=== PATIENT | female | born 1940 | race Caucasian/White ===

== ENCOUNTER 2022-06-02 14:40 | Emergency (ER) | payer MEDICARE, OTHER, SELFPAY ==
[2022-06-02 15:04] VITALS: BP 129/49; PULSE 71; RESP 18; TEMP 36.3; O2SAT 94; BMI 18.4
--- NOTE | 2022-06-02 15:52 | ED_ITS ---
HPI - General Adult General Date Seen: 06/02/22 Chief complaint: Dizziness/Vertigo Stated complaint: Lightheaded Time Seen by Provider: 06/02/22 15:10 Source: patient Mode of arrival: ambulatory Limitations: no limitations Related Data Home Medications Medication Instructions Recorded Confirmed chlorthalidone 50 mg tablet mg 06/02/22 lisinopril 10 mg tablet mg 06/02/22 Allergies Allergy/AdvReac Type Severity Reaction Status Date / Time No Known Drug Allergies Allergy Verified 06/02/22 14:59 Review of Systems Status of ROS: Reports: 10 or more systems reviewed and unremarkable except as noted in History and below [facility] Medical History (Updated 06/02/22 @ 16:29 by Ochoa Coronado MD) Hypertension Surgical History (Updated 06/02/22 @ 15:11 by Malorie Garcia RN) History of cholecystectomy Social History Smoking Status: Former smoker What tobacco products do you use: cigarettes Do you use any of these nicotine containing products: None Second hand tobacco smoke exposure: Yes How often do you have a drink containing alcohol: 2-3 times a week How many standard drinks containing alcohol do you have on a typical day: 1 or 2 How often do you have six or more drinks on one occasion: Never AUDIT-C Alcohol total score: 3 Non-prescribed substance use: denies use Exam Const: Vital Signs, click to edit/add: Vital Signs - 24 hr 06/02/22 15:04 06/02/22 16:00 Temperature 97.3 F L Pulse Rate [Right Pulse Oximeter] 71 72 Respiratory Rate 18 14 Blood Pressure [Ri ght Upper Arm] 129/49 L 113/61 Pulse Oximetry 94 98 Documenting provider has reviewed patient's vital signs: yes Common normals: no apparent distress General appearance: cooperative and frail appearing Nutritional appearance: cachectic Orientation/consciousness: Yes awake, Yes oriented to person, Yes oriented to place and Yes oriented to time HENMT: Common normals: normocephalic and TM's normal bilaterally Head and scalp: normal to inspection and normocephalic General ear: hearing grossly impaired Tympanic membrane: TM's normal bilaterally Mouth: oral and palatal mucosa normal Throat: posterior oropharynx normal Neck & C-Spine: Common normals: thyroid normal Thyroid: thyroid normal Chest: Common normals: inspection of chest normal Resp: Common normals: normal respiratory effort and clear to auscultation bilaterally Auscultation: clear to auscultation bilaterally GI: Common normals: Normal to inspection, nondistended, normoactive bowel sounds present Extremity: Common normals: normal capillary refill and no pedal edema Neuro: Sensorium/orientation: awake, oriented to person, oriented to place and oriented to time Speech: speech normal Gait (neuro): normal gait Course Course Hospital Course: Patient was seen and examined labs are ordered. Her initial blood pressure is 100/40. She is on two antihypertensives. Reevaluation(s) Reevaluation #1: She feels a bit better after her IV fluids. We discussed her abnormal test results which were sodium of 128, BUN of 61, creatinine 2.1. I will have her hold both blood pressure medications until she follows up in the clinic. We also discussed a plan for her chronic diarrhea. Vital Signs Vital signs: Initial Vital Signs Temperature 97.3 F L 06/02/22 15:04 Temperature Source Temporal Artery Scan 06/02/22 15:04 Pulse Rate 71 06/02/22 15:04 Respiratory Rate 18 06/02/22 15:04 Blood Pressure 129/49 L 06/02/22 15:04 Blood Pressure Mean 75 06/02/22 15:04 Blood Pressure Position Sitting 06/02/22 15:04 Pulse Oximetry 94 06/02/22 15:04 Oxygen Delivery Method 06/02/22 15:04 Vital Signs Temperature 97.3 F L 06/02/22 15:04 Pulse Rate 71 06/02/22 15:04 Respiratory Rate 18 06/02/22 15:04 Blood Pressure 129/49 L 06/02/22 15:04 Pulse Oximetry 94 06/02/22 15:04 Temperature 97.3 F L 06/02/22 15:04 Pulse Rate 72 06/02/22 16:00 Respiratory Rate 14 06/02/22 16:00 Blood Pressure 113/61 06/02/22 16:00 Pulse Oximetry 98 06/02/22 16:00 Medical Decision Making Lab Data Labs: Lab Results 06/02/22 06/02/22 Range/Units 15:35 15:35 WBC 7.78 (4.50-11.00) K/uL RBC 4.10 (4.00-5.20) m/uL Hgb 12.2 (12.0-16.0) gm/dL Hct 37.1 (33.0-51.0) % MCV 91 (80-100) fL MCH 30 (26-34) pg MCHC 33 (32-36) gm/dL RDW Coeff of Rhoda 11.8 (11.5-15.5) % Plt Count 328 (140-440) K/uL Neut % (Auto) 78.4 H (42.0-72.0) % Lymph % (Auto) 11.6 L (20-44) % [place] % (Auto) 8.4 (0.0-11.0) % Eos % (Auto) 1.3 (0.0-7.0) % Baso % (Auto) 0.3 (0.0-3.0) % Neut # (Auto) 6.10 (1.7-7.0) K/uL Lymph # (Auto) 0.90 (0.90-2.90) K/uL [place] # (Auto) 0.70 (0.00-0.90) K/UL Eos # (Auto) 0.10 (0.00-0.50) K/uL Baso # (Auto) 0.02 (0.00-0.30) K/uL Abs Immat Gran (auto) 0.00 (0.00-0.30) K/uL Sodium 128 L (135-149) mmol/L Potassium 5.0 (3.6-5.1) mmol/L Chloride 100 (96-114) mmol/L Carbon Dioxide 21 (20-32) mmol/L BUN 63 H (7-30) mg/dL Creatinine 2.1 H (0.5-1.5) mg/dL Estimated Creat Clear 15.12 Glucose 109 (60-115) mg/dL Calcium 9.0 (8.4-10.6) mg/dL Total Bilirubin 0.4 (0.1-1.5) mg/dL Direct Bilirubin 0.3 (0.0-0.5) mg/dL AST 14 (12-35) U/L ALT 20 (4-35) U/L Alkaline Phosphatase 85 (40-150) U/L Total Protein 6.0 (6.0-8.3) g/dL Albumin 3.7 (3.3-5.0) g/dL Discharge Plan Discharge Clinical Impression: Hypotension, iatrogenic, Hyponatremia, Acute renal insufficiency Patient Disposition: Home, Self-Care Condition: Improved Additional Instructions: Stop taking your chlorthalidone and lisinopril. Push fluids. Monitor your blood pressure at home. Follow up with Dr. Deras next week for an office visit and labs. For your chronic diarrhea I would suggest Benefiber 2 tsp daily and Imodium two pills in the morning. You can take another dose later in the day if you have more loose stools. Discussed with Dr. Deras whether or not to use cholestyramine. Activity Level: No Restrictions Discharge Diet: Regular Prescriptions: No Action chlorthalidone 50 mg tablet 0RF Label Comments: 50 MG BY MOUTH DAILY lisinopril 10 mg tablet 0RF Follow Up/Referrals: Sloan Deras MD [Primary Care Provider] - ( Must be seen within the next week.) Stand Alone Forms: [employer] Info Instructions
[2022-06-02 15:59] LABS: Albumin* 3.7 g/dL (3.3-5.0); Basophils Absolute Auto 0.02 K/uL (0.00-0.30); Basophils Percent Auto 0.3 % (0.0-3.0); Chloride* 100 mmol/L (96-114); Eosinophils Percent Auto 1.3 % (0.0-7.0); Hematocrit 37.1 % (33.0-51.0); Hemoglobin* 12.2 gm/dL (12.0-16.0); Lymphocytes Percent Auto 11.6 % (20-44); Mean Corpuscular HGB Conc 33 gm/dL (32-36); Mean Corpuscular Hemoglobin 30 pg (26-34); Mean Corpuscular Volume 91 fL (80-100); Monocytes Percent Auto 8.4 % (0.0-11.0); Neutrophils Percent Auto 78.4 % (42.0-72.0); Platelet Count* 328 K/uL (140-440); RDW Coefficient of Variation % 11.8 % (11.5-15.5); Sodium* 128 mmol/L (135-149); White Blood Count* 7.78 K/uL (4.50-11.00)
[2022-06-02 16:00] VITALS: BP 113/61; PULSE 72; RESP 14; O2SAT 98
[2022-06-02 16:02] LABS: Alanine Aminotransferase* 20 U/L (4-35); Alkaline Phosphatase* 85 U/L (40-150); Aspartate Amino Transferase* 14 U/L (12-35); Bilirubin Direct* 0.3 mg/dL (0.0-0.5); Bilirubin Total* 0.4 mg/dL (0.1-1.5); Blood Urea Nitrogen* 63 mg/dL (7-30); Carbon Dioxide* 21 mmol/L (20-32); Creatinine* 2.1 mg/dL (0.5-1.5); Est. Creatinine Clearance* 15.12; Estimated Glomerular Filt Rate 22.95; Glucose* 109 mg/dL (60-115)
[2022-06-02] MEDS: 0.9 % SODIUM CHLORIDE 1000 ml 1,000 ML IV (16:51)
[2022-06-02 17:12] LABS: Slide Review Reflex No
== END 2022-06-02 18:30 | disposition home or self-care (01) ==
LOC: ED 16:51
PROVIDERS: Emergency Provider Family Medicine; PCP Family Medicine
DX: I10 Essential (primary) hypertension (principal); E87.1 Hypo-osmolality and hyponatremia; N17.9 Acute kidney failure, unspecified
CPT/HCPCS: 36415; 80048; 80076; 85025; 99283; J7030

== ENCOUNTER 2022-06-10 15:12 | Outpatient (CLI) | payer MEDICARE, OTHER, SELFPAY ==
[2022-06-10 18:10] LABS: Alanine Aminotransferase* 27 U/L (4-35); Alkaline Phosphatase* 87 U/L (40-150); Blood Urea Nitrogen* 28 mg/dL (7-30); Calcium* 10.1 mg/dL (8.4-10.6); Glucose* 108 mg/dL (60-115); Lipase* 49 U/L (23-300); Total Protein* 5.7 g/dL (6.0-8.3)
[2022-06-10 18:21] LABS: Sodium* 134 mmol/L (135-149)
[2022-06-10 18:22] LABS: Albumin* 3.7 g/dL (3.3-5.0); Aspartate Amino Transferase* 28 U/L (12-35); Bilirubin Total* 0.3 mg/dL (0.1-1.5); Carbon Dioxide* 30 mmol/L (20-32); Chloride* 101 mmol/L (96-114); Potassium* 4.5 mmol/L (3.6-5.1)
== END 2022-06-10 15:13 | disposition home or self-care (01) ==
PROVIDERS: PCP Family Medicine; Visit Provider Family Medicine
DX: R19.7 Diarrhea, unspecified (principal); I10 Essential (primary) hypertension; N28.9 Disorder of kidney and ureter, unspecified
CPT/HCPCS: 80053; 83690

== ENCOUNTER 2023-08-17 08:44 | Outpatient (CLI) | payer MEDICARE, OTHER, SELFPAY | END 2023-08-17 08:45 | disposition home or self-care (01) | PROVIDERS: PCP Family Medicine; Visit Provider Family Medicine | DX: Z00.00 Encounter for general adult medical examination without abnormal findings (principal); I10 Essential (primary) hypertension; E78.5 Hyperlipidemia, unspecified; R19.7 Diarrhea, unspecified | CPT/HCPCS: 80048; 82607 ==

== ENCOUNTER 2023-11-15 07:50 | Outpatient (CLI) | payer MEDICARE, OTHER, SELFPAY | END 2023-11-15 07:51 | disposition home or self-care (01) | LOC: NFLDREF 11-16 16:01 | PROVIDERS: PCP Family Medicine; Referring Provider Family Medicine; Visit Provider Family Medicine | DX: E78.5 Hyperlipidemia, unspecified (principal); I10 Essential (primary) hypertension; M85.80 Other specified disorders of bone density and structure, unspecified site | CPT/HCPCS: 80053; 80061; 82306 ==

== ENCOUNTER 2023-12-15 15:22 | Outpatient (CLI) | payer MEDICARE, OTHER, SELFPAY ==
--- NOTE | 2023-12-15 15:30 | XR_ITS ---
Final Report Patient: DEBBIE WONG Facility:?[facility] Patient ID:?[id number] Study:?DEXA Bone Density DEXA - Spine/Hips-12/15/2023 4:02:28 PM Ordering Physician:WALTER Final Report: DXA BONE MINERAL DENSITY STUDY Reason for exam: Osteopenia. Current height (in): 64. Weight (lb): 105. Menopause age: 53. Ethnicity: White. 1. Have you had a previous hip or vertebral fracture? No. 2. Have you had any fractures during your adult life which did not result from significant trauma (e.g., auto accident)? No. 3. Did either of your parents have a hip fracture? No. 4. Do you smoke? No. 5. Have you ever taken Glucocorticoids? No. 6. Do you have rheumatoid arthritis? No. 7. Do you have secondary osteoporosis? No. 8. Do you drink 3 or more alcoholic drinks per day? No. 9. Are you being treated for osteoporosis? No. 10. Have you ever taken any of the following medications: Actonel, Evista, Fosamax, Miacalcin, Reclast, Boniva, Forteo, HRT (i.e., estrogen/hormone therapy), Protelos, Prolia, Vitamin D, Calcium, other ? please specify. ANSWER: Yes, vitamin D and calcium. 11. Do you have any of the following medical conditions: Anorexia or bulimia, asthma or emphysema, end stage renal disease, hyperparathyroidism, any seizure disorders, cancer, inflammatory bowel diseases, hysterectomy, other ? please specify. ANSWER: No. 12. What was your maximum height (inches)? 66. 13. Do you perform weight bearing exercise regularly? Yes. 14. Do you regularly consume dairy products? Yes. 15. Do you drink caffeinated beverages? Yes. If female: 16. At what age did your period start? Not provided. 17. Are you premenopausal? No. 18. How many full-term pregnancies have you had? 2. 19. Have you ever missed your period for more than 6 months in a row (not including or menopause)? No. TECHNIQUE: Bone mineral density study was performed using the dough. FINDINGS: The results of the study expressed as bone mineral density (BMD) are as follows: Lumbar spine L2 to L4: BMD: 1.108 g/cm2. T-score: 0.3. Z-score: 3.2 Neck Left: BMD: 0.776 g/cm2. T-score: -0.7. Z-score: 1.9 Right: BMD: 0.679 g/cm2. T-score: -1.5. Z-score: 1.0 Total Left: BMD: 0.796 g/cm2. T-score: -1.2. Z-score: 1.1 Right: BMD: 0.767 g/cm2. T-score: -1.4. Z-score: 0.9 IMPRESSION: Osteopenia. *Comparison exams done prior to 04/2020 were performed on different unit, [employer]. COMPARISON: Compared with scan of 12/25/2019, the bone mineral density has increased by 0.7 percent at the spine and increased by 0.3 percent at the hip. FRAX 10-year Fracture Risk Major Osteoporotic Fracture: 10% Hip Fracture: 3.0% Reported Risk Factors: [place] () Neck BMD=0.679, BMI= 18.0 Ochoa Pyle M.D. Diagnostic Radiologist [email or web address] D& Transcribed: 11:42 a.pily schofield/Dictated by: Ochoa Pyle MD @ 12/16/2023 8:53:00 AM (Electronic Signature)
== END 2023-12-15 15:23 | disposition home or self-care (01) ==
LOC: RAD 15:24
PROVIDERS: PCP Family Medicine; Visit Provider Family Medicine
DX: M85.89 Other specified disorders of bone density and structure, multiple sites (principal); Z78.0 Asymptomatic menopausal state
CPT/HCPCS: 77080

== ENCOUNTER 2024-02-01 11:22 | Outpatient (CLI) | payer MEDICARE, OTHER, SELFPAY ==
--- NOTE | 2024-02-01 11:30 | MM_ITS ---
Patient: DEBBIE WONG Facility:?[facility] Patient ID:?[id number] Site Patient ID:?[id number]. Site :?[id number] Study:?XRay-Breast Bilateral 3D W/CAD-02/01/2024 11:42:03 AM Ordering Physician:Deepali Final Report: BILATERAL SCREENING MAMMOGRAM WITH COMPUTER-AIDED DETECTION AND TOMOSYNTHESIS TECHNIQUE: CC and MLO views were obtained. These mammographic images have been obtained using full-field digital technique. These mammographic images were interpreted with the benefit of computer-aided detection. Breast Tomosynthesis was used in this interpretation. COMPARISON FILM: 02/05/20, 10/18/17, 02/14/15. FINDINGS: The breasts are heterogeneously dense, which may obscure small masses. IMPRESSION: There is no radiographic evidence for malignancy. ASSESSMENT: BI-RADS Category 1: Negative RECOMMENDATION: Routine screening mammogram in 1 year. A lay language report of this examination will be provided to the patient. Ochoa Pyle M.D. Diagnostic Radiologist [email or web address] DSM/sp R& Transcribed: 7:02 p.m. SP/Dictated by: Ochoa Pyle MD @ 02/01/2024 12:32:00 PM Signed by:?Ochoa Pyle MD @02/02/2024 5:43:22 AM (Electronic Signature)
== END 2024-02-01 11:23 | disposition home or self-care (01) ==
LOC: MAMMO 11:23
PROVIDERS: PCP Family Medicine; Visit Provider Family Medicine
DX: Z12.31 Encounter for screening mammogram for malignant neoplasm of breast (principal); R92.2 Inconclusive mammogram
CPT/HCPCS: 77063; 77067

== ENCOUNTER 2024-07-26 17:15 | Emergency (ER) | payer MEDICARE, OTHER, SELFPAY ==
[2024-07-26 17:25] VITALS: BP 211/79; PULSE 71; RESP 16; TEMP 36.3; O2SAT 99; BMI 18.6
--- NOTE | 2024-07-26 20:19 | ED_ITS ---
HPI - General Adult General Date Seen: 07/26/24 Chief complaint: Hypertension Stated complaint: high blood pressure, dizzy Time Seen by Provider: 07/26/24 20:19 History of Present Illness HPI narrative: 83-year-old female with a history of hypertension, hyperlipidemia, osteopenia. She is here with her daughter. She unfortunately with through the of her other daughter about 4 months ago in February. Ever since then she has really been feeling a bit depressed and lacks about measuring her blood pressure in taking her meds. She also stopped taking her chlorthalidone recently. It sounds like she really just felt like there was no point in controlling her blood pressure because it was going to run high any way. Her most recent primary care visit a number was in January 2024. According to those notes she was on lisinopril 10 mg b.i.d. and chlorthalidone 12.5 mg daily. Records indicate that most of her blood pressures were under 140/90. She had clinic blood pressure measurement of 180/90 which correlated with her home blood pressure cuff measurement that day of 178/101. She began to feel a little bit weaker than normal and lightheaded a couple of days ago. Daughter notes that she had a mild stuffy nose and cough over the weekend but that is now gone. She is not having any ongoing cough or fever. No trouble breathing. She never had any chest pain. No palpitations. Today because she was just feeling a bit lightheaded and run down she checked her blood pressure and was apprised about how elevated her number was (190 systolic). She does not have a headache. No blurry vision. No focal numbness or weakness. Her daughter thinks she is probably dehydrated. She tends to drink coffee and wine but never drinks water. Related Data Home Medications ?Medication ?Instructions ?Recorded ?Confirmed Saccharomyces boulardii 250 mg PO 06/10/22 04/19/24 capsule benefiber PO 06/10/22 04/19/24 calcium carbonate 600 mg PO BID 06/10/22 04/19/24 glucosamine-chondroitin 250 mg-200 1 tab PO BID 06/10/22 04/19/24 mg tablet ibuprofen 400 mg tablet 400 mg PO TID PRN 06/10/22 04/19/24 multivitamin (Multiple Vitamins 1 tab PO QDAY 06/10/22 04/19/24 tablet) omega 5-qig-ifc-fish oil 300 1 cap PO QDAY 06/10/22 04/19/24 mg-1,000 mg capsule (Fish Oil) Previous Rx's ?Medication ?Instructions ?Recorded cholestyramine-aspartame 4 gram See Rx Instructions PO DAILY #720 08/17/23 oral powder (Prevalite) grams chlorthalidone 25 mg tablet 12.5 mg (1/2 x 25 mg) PO QDAY #45 02/01/24 tabs lisinopril 20 mg tablet 20 mg PO QDAY #90 tabs 02/01/24 triamcinolone acetonide 0.1 % 1 applic topical BID PRN rash #30 04/19/24 topical cream grams Allergies Allergy/AdvReac Type Severity Reaction Status Date / Time Penicillins Allergy Unknown Verified 04/19/24 14:15 [facility] Medical History (Updated 07/26/24 @ 21:49 by Navarro Fu MD) Osteopenia (2019) ?M85.80 - Other specified disorders of bone density and structure, unspecified site (ICD-10) Hyperlipidemia ?E78.5 - Hyperlipidemia, unspecified (ICD-10) Diarrhea ?R19.7 - Diarrhea, unspecified (ICD-10) Hypertension (2014) ?I10 - Essential (primary) hypertension (ICD-10) Fibrocystic breast changes ?N60.19 - Diffuse cystic mastopathy of unspecified breast (ICD-10) Health care directive on file ?Z78.9 - Other specified health status (ICD-10) Surgical History (Updated 11/02/23 @ 11:01 by Jamia Corrigan MD) Status post cholecystectomy (~2012) ?Z90.49 - Acquired absence of other specified parts of digestive tract (ICD- 10) Status post cataract extraction (2019) ?Z98.49 - Cataract extraction status, unspecified eye (ICD-10) Status post breast biopsy ?Z98.890 - Other specified postprocedural states (ICD-10) S/P total knee arthroplasty (2012) ?Z96.659 - Presence of unspecified artificial knee joint (ICD-10) Family History (Updated 11/02/23 @ 11:02 by Jamia Corrigan MD) Father Myocardial infarction, Onset Age: 75 Daughter Type 1 diabetes mellitus Social History (Updated 11/02/23 @ 11:03 by Jamia Corrigan MD) Narrative: 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, 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[place], 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 Exercises daily 15 minutes [place] track and stretches Nonsmoker quit age 18 Drinks 3-4 glasses of wine a week What is your current living situation?: I presently have a place to live Problems where you live: no known problems In the past 12 months, utilities in danger of being shut off: no In past 12 months, lack of transportation kept you from medical appts, meetings, work, or getting things needed for daily living: no In the past 12 mos, have been you worried that your food would run out before you had money to buy more?: never true In the past 12 mos, the food you bought just didn't last and you didn't have money to buy more?: never true Smoking Status: Former smoker What tobacco products do you use: cigarettes Smoking quit date/years: >15 years ago Do you use any of these nicotine containing products: None Second hand tobacco smoke exposure: Yes How often do you have a drink containing alcohol: 2-3 times a week How many standard drinks containing alcohol do you have on a typical day: 1 or 2 How often do you have six or more drinks on one occasion: Never AUDIT-C Alcohol total score: 3 Non-prescribed substance use: denies use How often does anyone, including family, friends and others, physically hurt you : never How often does anyone, including family, friends and others, insult or talk down to you: never How often does anyone, including family, friends and others, threaten you with harm: never How often does anyone, including family, friends and others, scream or curse at you: never Little interest or pleasure in doing things: not at all Feeling down, depressed, or hopeless: not at all Exam Narrative: Exam Narrative: Constitutional: Appears well-developed and well-nourished. Alert. Conversant. Non toxic. Very polite. HENT: Head: Atraumatic. Nose: Nose normal. Mouth/Throat: Oral mucosa is clear and moist. no trismus. Pharynx normal. Tonsils symmetric. No tonsillar enlargement, erythema, or exudate. Eyes: Conjunctivae normal. EOM normal. Pupils equal, round, and reactive to light. No scleral icterus. Neck: Normal range of motion. Neck supple. No tracheal deviation present. No JVD Cardiovascular: Normal rate, regular rhythm. No gallop. No friction rub. No murmur heard. Symmetric radial and PT artery pulses Pulmonary/Chest: Effort normal. No stridor. No respiratory distress. No wheezes. No rales. No rhonchi . No tenderness. Abdominal: Soft.. No distension. No mass. No tenderness. No rebound. No guarding. Musculoskeletal: RUE: Normal range of motion. No tenderness. No deformity LUE: Normal range of motion. No tenderness. No deformity RLE: Normal range of motion. No edema. No tenderness. No deformity LLE: Normal range of motion. No edema. No tenderness. No deformity Lymph: No cervical adenopathy. Neurological: Alert and oriented to person, place, and time. Normal strength. CN II-VII intact. No sensory deficit. GCS eye subscore is 4. GCS verbal subscore is 5. GCS motor subscore is 6. 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 Gait steady. Skin: Skin is warm and dry. No rash noted. No pallor. Normal capillary refill. Psychiatric: Normal mood. Normal affect. Const: Vital Signs, click to edit/add: Vital Signs - 24 hr 07/26/24 17:25 07/26/24 21:15 07/26/24 21:21 Temperature 97.4 F L Pulse Rate [Pulse Oximeter] 71 64 Respiratory Rate 16 16 Blood Pressure [Ri ght Upper Arm] 211/79 H 190/88 H Pulse Oximetry 99 98 Oxygen Delivery Me thod Room Air Room Air Course Vital Signs Vital signs: Initial Vital Signs Temperature 97.4 F L 07/26/24 17:25 Temperature Source Temporal Artery Scan 07/26/24 17:25 Pulse Rate 71 07/26/24 17:25 Respiratory Rate 16 07/26/24 17:25 Blood Pressure 211/79 H 07/26/24 17:25 Blood Pressure Mean 123 H 07/26/24 17:25 Pulse Oximetry 99 07/26/24 17:25 Oxygen Delivery Method Room Air 07/26/24 17:25 Vital Signs Temperature 97.4 F L 07/26/24 17:25 Pulse Rate 71 07/26/24 17:25 Respiratory Rate 16 07/26/24 17:25 Blood Pressure 211/79 H 07/26/24 17:25 Pulse Oximetry 99 07/26/24 17:25 Oxygen Delivery Method Room Air 07/26/24 17:25 Temperature 97.4 F L 07/26/24 17:25 Pulse Rate 64 07/26/24 21:15 Respiratory Rate 16 07/26/24 21:15 Blood Pressure 190/88 H 07/26/24 21:21 Pulse Oximetry 98 07/26/24 21:15 Oxygen Delivery Method Room Air 07/26/24 21:15 Medications Administered Medications: Discontinued Medications Generic Name Dose Route Start Last Admin Trade Name Jayroq PRN Reason Stop Dose Admin Chlorthalidone 12.5 mg 07/26/24 21:24 07/26/24 21:25 Chlorthalidone 25 Mg Tablet PO 07/26/24 21:25 12.5 mg ONCE ONE Administration Medical Decision Making MDM Narrative Medical decision making narrative: This patient presents for evaluation of elevated blood pressure. There is a history of hypertension in the past. No concerning symptoms of chest pain , [place] headache, neurologic deficits. The workup here is reassuring and the patient does not have any clinical, laboratory, ecg or historical signs of end- organ dysfunction. There is no signs of hypertensive emergency or urgency. Supportive outpatient management is therefore indicated with close follow-up of primary care physician. Given data obtained here in ED, will have the patient restart on her chlorthalidone and continue her lisinopril for therapy at this time and encouraged serial blood pressure monitoring at home to aid primary in decision making regarding hypertension. Follow-up with PCP within 1 week. Lab Data Labs: Lab Results 07/26/24 Range/Units 21:00 WBC 6.46 (4.50-11.00) K/uL RBC 4.14 (4.00-5.20) m/uL Hgb 12.1 (12.0-16.0) gm/dL Hct 38.1 (33.0-51.0) % MCV 92 (80-100) fL MCH 29 (26-34) pg MCHC 32 (32-36) gm/dL RDW Coeff of Rhoda 12.4 (11.5-15.5) % Plt Count 218 (140-440) K/uL Neut % (Auto) 66.8 (42.0-72.0) % Lymph % (Auto) 20.6 (20-44) % [place] % (Auto) 8.2 (0.0-11.0) % Eos % (Auto) 3.6 (0.0-7.0) % Baso % (Auto) 0.6 (0.0-3.0) % Neut # (Auto) 4.32 (1.7-7.0) K/uL Lymph # (Auto) 1.33 (0.90-2.90) K/uL [place] # (Auto) 0.50 (0.00-0.90) K/UL Eos # (Auto) 0.23 (0.00-0.50) K/uL Baso # (Auto) 0.04 (0.00-0.30) K/uL Abs Immat Gran (auto) 0.01 (0.00-0.30) K/uL Imm/Tot Granulo (auto) 0.2 % Sodium 135 (135-149) mmol/L Potassium 4.6 (3.6-5.1) mmol/L Chloride 105 (96-114) mmol/L Carbon Dioxide 23 (20-32) mmol/L Anion Gap 7 (7-15) mEq/L BUN 21 (7-30) mg/dL Creatinine 0.8 (0.5-1.5) mg/dL Estimated Creat Clear 30.92 Estimated GFR 72 ml/min Glucose 101 (60-115) mg/dL Calcium 9.3 (8.4-10.6) mg/dL POC Troponin I 0.01 (0.01-0.04) ng/ml Discharge Plan Discharge Clinical Impression: Hypertension Patient Disposition: Home, Self-Care Condition: Stable Instructions: Hypertension (ED) Additional Instructions: As we discussed, please come back to the ER right away if you have worsening symptoms especially worsening dizziness, severe headache, blurry vision, numbness or weakness in your arms or legs, droopy face, severe chest pain or trouble breathing, or if you have any other concerns. Please restart on your chlorthalidone and continue your other blood pressure medications. Please monitor and record her blood pressure medication once every day or so and keep a log for your regular doctor. Please bring her log with you and recheck with your doctor within about 1 week to see higher blood pressure control is doing. If her blood pressure continues to run high, you and your doctor will need to adjust her blood pressure medications. Prescriptions: No Action Prevalite 4 gram powder See Rx Instructions PO DAILY Qty: 720 6RF Rx Instructions: Two scoopfuls orally daily; lisinopril 20 mg tablet 20 mg PO QDAY Qty: 90 3RF chlorthalidone 25 mg tablet 12.5 mg PO QDAY Qty: 45 5RF Hold Instructions: patient stopped taking multivitamin [Multiple Vitamins] Tablet 1 tab PO QDAY omega 8-vtw-sbv-fish oil [Fish Oil] 300-1,000 mg capsule 1 cap PO QDAY calcium carbonate 600 mg calcium (1,500 mg) tablet 600 mg PO BID ibuprofen 400 mg tablet 400 mg PO TID PRN glucosamine-chondroitin 250-200 mg tablet 1 tab PO BID Saccharomyces boulardii 250 mg capsule PO benefiber PO triamcinolone acetonide 0.1 % cream 1 applic topical BID PRN (Reason: rash) Qty: 30 0RF Rx Instructions: apply thin layer twice a day to itchy rash , max 7 days Follow Up/Referrals: Jamia Corrigan MD [Primary Care Provider] - Stand Alone Forms: [employer] Info Instructions
[2024-07-26 21:09] LABS: Basophils Absolute Auto 0.04 K/uL (0.00-0.30); Basophils Percent Auto 0.6 % (0.0-3.0); Eosinophils Absolute Auto 0.23 K/uL (0.00-0.50); Eosinophils Percent Auto 3.6 % (0.0-7.0); Hematocrit 38.1 % (33.0-51.0); Hemoglobin* 12.1 gm/dL (12.0-16.0); Immature Granulocytes Abs Auto 0.01 K/uL (0.00-0.30); Immature Granulocytes Pct Auto 0.2 %; Lymphocytes Absolute Auto 1.33 K/uL (0.90-2.90); Lymphocytes Percent Auto 20.6 % (20-44); Mean Corpuscular HGB Conc 32 gm/dL (32-36); Mean Corpuscular Hemoglobin 29 pg (26-34); Mean Corpuscular Volume 92 fL (80-100); Monocytes Percent Auto 8.2 % (0.0-11.0); Neutrophils Absolute Auto 4.32 K/uL (1.7-7.0); Neutrophils Percent Auto 66.8 % (42.0-72.0); Platelet Count* 218 K/uL (140-440); RDW Coefficient of Variation % 12.4 % (11.5-15.5); Red Blood Count 4.14 m/uL (4.00-5.20); White Blood Count* 6.46 K/uL (4.50-11.00)
[2024-07-26 21:12] LABS: Slide Review Reflex No
[2024-07-26 21:15] VITALS: PULSE 64; RESP 16; O2SAT 98
[2024-07-26 21:17] LABS: Troponin, Point-of-Care* 0.01 ng/ml (0.01-0.04)
[2024-07-26 21:21] VITALS: BP 190/88
[2024-07-26 21:21] LABS: Chloride* 105 mmol/L (96-114); Potassium* 4.6 mmol/L (3.6-5.1); Sodium* 135 mmol/L (135-149)
[2024-07-26 21:24] LABS: Anion Gap 7 mEq/L (7-15); Blood Urea Nitrogen* 21 mg/dL (7-30); Calcium* 9.3 mg/dL (8.4-10.6); Carbon Dioxide* 23 mmol/L (20-32); Creatinine* 0.8 mg/dL (0.5-1.5); Est. Creatinine Clearance* 30.92; Estimated Glomerular Filt Rate 72 ml/min; Glucose* 101 mg/dL (60-115)
[2024-07-26] MEDS: CHLORTHALIDONE 25 MG TABLET 12.5 MG PO (21:25)
== END 2024-07-26 21:55 | disposition home or self-care (01) ==
PROVIDERS: Emergency Provider Emergency Medicine; PCP Family Medicine
DX: I10 Essential (primary) hypertension (principal)
CPT/HCPCS: 36415; 80048; 84484; 85025; 93005; 99283; 99284; A9270

== ENCOUNTER 2024-08-12 14:06 | Emergency (ER) | payer MEDICARE, OTHER, SELFPAY ==
[2024-08-12] VITALS (18 sets, daily range): BP systolic 134–176; BP diastolic 52–74; PULSE 66–78; RESP 14–16; TEMP 36.4; O2SAT 94–100; BMI 19.5
[2024-08-12] MEDS: ONDANSETRON 2 MG/ML inj 4 MG IVP (14:51)
[2024-08-12] MEDS: 0.9 % SODIUM CHLORIDE 500 ML 500 ML IV (14:51)
--- NOTE | 2024-08-12 14:52 | ED.GENADULT ---
HPI - General Adult General Date Seen: 08/12/24 Chief complaint: Nausea/Vomiting Stated complaint: Vomiting Time Seen by Provider: 08/12/24 14:07 Source: patient Mode of arrival: ambulatory Limitations: no limitations History of Present Illness HPI narrative: Patient is an 83-year-old here with her daughter for evaluation of vomiting which started a few hours ago. She has had diarrhea as well, she says the diarrhea is not completely unusual for her, since having her gallbladder out she has taking cholestyramine to help manage that. She says that she had been doing reasonably well until today when she developed vomiting and more substantial diarrhea. She denies abdominal pain. She says her chest feels tight but she is ?sure that that is just stress, she does note significant anxiety. She has not had fevers, shortness of breath, bloody stools or vomiting blood. She does note that she was quite lightheaded when she stood up earlier. She is status post cholecystectomy, denies other abdominal surgeries. She does not smoke or drink. Related Data Home Medications ?Medication ?Instructions ?Recorded ?Confirmed Saccharomyces boulardii 250 mg PO 06/10/22 08/01/24 capsule benefiber PO 06/10/22 04/19/24 calcium carbonate 600 mg PO BID 06/10/22 08/12/24 glucosamine-chondroitin 250 mg-200 1 tab PO BID 06/10/22 08/12/24 mg tablet ibuprofen 400 mg tablet 400 mg PO TID PRN 06/10/22 08/01/24 multivitamin (Multiple Vitamins 1 tab PO QDAY 06/10/22 08/12/24 tablet) omega 5-tsy-bfy-fish oil 300 1 cap PO QDAY 06/10/22 08/12/24 mg-1,000 mg capsule (Fish Oil) Previous Rx's ?Medication ?Instructions ?Recorded cholestyramine-aspartame 4 gram See Rx Instructions PO DAILY #720 08/17/23 oral powder (Prevalite) grams lisinopril 20 mg tablet 20 mg PO QDAY #90 tabs 02/01/24 chlorthalidone 25 mg tablet 12.5 mg (1/2 x 25 mg) PO QDAY #45 08/01/24 tabs Allergies Allergy/AdvReac Type Severity Reaction Status Date / Time Penicillins Allergy Unknown Verified 08/12/24 14:17 Review of Systems Status of ROS: Reports: 10 or more systems reviewed and unremarkable except as noted in History and below [facility] Medical History Osteopenia (2019) ?M85.80 - Other specified disorders of bone density and structure, unspecified site (ICD-10) Hyperlipidemia ?E78.5 - Hyperlipidemia, unspecified (ICD-10) Diarrhea ?R19.7 - Diarrhea, unspecified (ICD-10) Hypertension (2014) ?I10 - Essential (primary) hypertension (ICD-10) Fibrocystic breast changes ?N60.19 - Diffuse cystic mastopathy of unspecified breast (ICD-10) Health care directive on file ?Z78.9 - Other specified health status (ICD-10) Surgical History Status post cholecystectomy (~2012) ?Z90.49 - Acquired absence of other specified parts of digestive tract (ICD-10) Status post cataract extraction (2019) ?Z98.49 - Cataract extraction status, unspecified eye (ICD-10) Status post breast biopsy ?Z98.890 - Other specified postprocedural states (ICD-10) S/P total knee arthroplasty (2012) ?Z96.659 - Presence of unspecified artificial knee joint (ICD-10) Family History Father Myocardial infarction, Onset Age: 75 Daughter Type 1 diabetes mellitus Social History Narrative: 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, 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[place], 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 Exercises daily 15 minutes [place] track and stretches Nonsmoker quit age 18 Drinks 3-4 glasses of wine a week What is your current living situation?: I presently have a place to live Problems where you live: no known problems In the past 12 months, utilities in danger of being shut off: no In past 12 months, lack of transportation kept you from medical appts, meetings, work, or getting things needed for daily living: no In the past 12 mos, have been you worried that your food would run out before you had money to buy more?: never true In the past 12 mos, the food you bought just didn't last and you didn't have money to buy more?: never true Smoking Status: Former smoker What tobacco products do you use: cigarettes Smoking quit date/years: >15 years ago Do you use any of these nicotine containing products: None Second hand tobacco smoke exposure: Yes How often do you have a drink containing alcohol: 4 or more times a week How many standard drinks containing alcohol do you have on a typical day: 1 or 2 How often do you have six or more drinks on one occasion: Never AUDIT-C Alcohol total score: 4 Non-prescribed substance use: denies use How often does anyone, including family, friends and others, physically hurt you: never How often does anyone, including family, friends and others, insult or talk down to you: never How often does anyone, including family, friends and others, threaten you with harm: never How often does anyone, including family, friends and others, scream or curse at you: never Little interest or pleasure in doing things: not at all Feeling down, depressed, or hopeless: not at all Exam Narrative: Exam Narrative: Vital signs as noted above. In general, an alert, nontoxic elderly woman. Breathing easily. Head: Normocephalic, atraumatic. Eyes: Pupils are equal reactive. Extraocular movements are full. Conjunctivae are normal. ENT: Mucous membranes are somewhat dry. Neck: Supple without lymphadenopathy. Heart: Regular rate and rhythm. No murmur or rub. Lungs: Clear bilaterally. No increased work of breathing, crackles or wheezes. Abdomen: Soft and nontender. Bowel sounds present. Extremities: Well perfused. No edema. No calf tenderness. Pulses intact. Neurologic: Patient is alert and oriented to person and place. Speech is fluent. Face is symmetric. Moves all extremities equally. Affect: Normal. Skin: Warm and dry. Well perfused. Const: Vital Signs, click to edit/add: Vital Signs - 24 hr 08/12/24 14:17 08/12/24 14:27 Temperature 97.6 F Pulse Rate [Pulse Oximeter] 67 Respiratory Rate 14 Blood Pressure [Ri ght Upper Arm] 176/74 H Pulse Oximetry 97 94 Oxygen Delivery Me thod Room Air Documenting provider has reviewed patient's vital signs: yes Course Course ED Course: We will place an IV here, give Zofran and IV fluids. Blood work pending. Diagnostic considerations would include a viral gastroenteritis, gastritis, colitis, diverticulitis, bowel obstruction somewhat less likely given abrupt onset of vomiting and diarrhea. She mentions chest tightness although she kind of dismisses this. I did do an EKG and this shows a sinus rhythm, ventricular rate of 64. No acute ST segment changes. First-degree AV block with a FL of 220 milliseconds. Will get a troponin as well. Labs are overall reassuring. White blood cell count is normal at 9.4, hemoglobin is 11.8. Metabolic panel shows normal electrolytes, normal CO2, a gap of 6. BUN is 23 and creatinine is 0.8. Blood sugars 148. Lactate is 1, magnesium was 1.8, LFTs essentially normal. AST was 38. CRP is less than 0.5. UA notable for 1+ ketones, 0-2 reds, 0-2 whites. Point of care troponin was 0.01. After IV fluids and Zofran, she feels significantly improved. She has had some Sprite and some crackers and no longer feels nauseated. She says the dizziness and lightheadedness is resolved as well. Feels comfortable going home. I offered to prescribe Zofran but she says she does not think she needs it. If she has acute worsening, continued vomiting, abdominal pain, fevers, bloody stools etcetera return any time to the ER. See primary care for ongoing concerns. Vital Signs Vital signs: Initial Vital Signs Temperature 97.6 F 08/12/24 14:17 Temperature Source Temporal Artery Scan 08/12/24 14:17 Pulse Rate 67 08/12/24 14:17 Respiratory Rate 08/12/24 14:17 Blood Pressure 176/74 H 08/12/24 14:17 Blood Pressure Mean 108 H 08/12/24 14:17 Blood Pressure Position Semi-Fowlers 08/12/24 14:17 Pulse Oximetry 97 08/12/24 14:17 Oxygen Delivery Method Room Air 08/12/24 14:17 Vital Signs Temperature 97.6 F 08/12/24 14:17 Pulse Rate 67 08/12/24 14:17 Respiratory Rate 14 08/12/24 14:17 Blood Pressure 176/74 H 08/12/24 14:17 Pulse Oximetry 97 08/12/24 14:17 Oxygen Delivery Method Room Air 08/12/24 14:17 Temperature 97.6 F 08/12/24 14:17 Pulse Rate 67 08/12/24 14:17 Respiratory Rate 14 08/12/24 14:17 Blood Pressure 176/74 H 08/12/24 14:17 Pulse Oximetry 94 08/12/24 14:27 Oxygen Delivery Method Room Air 08/12/24 14:17 Medications Administered Medications: Discontinued Medications Generic Name Dose Route Start Last Admin Trade Name Freq PRN Reason Stop Dose Admin Sodium Chloride 500 mls @ 500 mls/hr 08/12/24 14:27 08/12/24 14:51 0.9 % Sodium Chloride 500 Ml IV 08/12/24 15:26 500 mls/hr .Q1H ONE Administration Ondansetron HCl 4 mg 08/12/24 14:27 08/12/24 14:51 Ondansetron 2 Mg/Ml Inj IVP 08/12/24 14:28 4 mg ONCE ONE Administration Medical Decision Making Lab Data Labs: Lab Results 08/12/24 08/12/24 Range/Units 14:35 16:00 WBC 9.43 (4.50-11.00) K/uL RBC 3.99 L (4.00-5.20) m/uL Hgb 11.8 L (12.0-16.0) gm/dL Hct 36.5 (33.0-51.0) % MCV 92 (80-100) fL MCH 30 (26-34) pg MCHC 32 (32-36) gm/dL RDW Coeff of Rhoda 12.1 (11.5-15.5) % Plt Count 230 (140-440) K/uL Neut % (Auto) 87.1 H (42.0-72.0) % Lymph % (Auto) 7.8 L (20-44) % [place] % (Auto) 4.0 (0.0-11.0) % Eos % (Auto) 0.7 (0.0-7.0) % Baso % (Auto) 0.3 (0.0-3.0) % Neut # (Auto) 8.20 H (1.7-7.0) K/uL Lymph # (Auto) 0.70 L (0.90-2.90) K/uL [place] # (Auto) 0.40 (0.00-0.90) K/UL Eos # (Auto) 0.07 (0.00-0.50) K/uL Baso # (Auto) 0.03 (0.00-0.30) K/uL Abs Immat Gran (auto) 0.01 (0.00-0.30) K/uL Imm/Tot Granulo (auto) 0.1 % Sodium 135 (135-149) mmol/L Potassium 4.3 (3.6-5.1) mmol/L Chloride 105 (96-114) mmol/L Carbon Dioxide 24 (20-32) mmol/L Anion Gap 6 L (7-15) mEq/L BUN 23 (7-30) mg/dL Creatinine 0.8 (0.5-1.5) mg/dL Estimated Creat Clear 32.40 Estimated GFR 72 ml/min Glucose 148 H (60-115) mg/dL Lactate 1.0 (0.5-1.9) mmol/L Calcium 9.7 (8.4-10.6) mg/dL Magnesium 1.8 (1.5-2.6) mg/dL Total Bilirubin 0.5 (0.1-1.5) mg/dL Direct Bilirubin 0.3 (0.0-0.5) mg/dL AST 38 H (12-35) U/L ALT 25 (4-35) U/L Alkaline Phosphatase 83 (40-150) U/L C-Reactive Protein < 0.5 L (0.5-1.0) mg/dL Total Protein 6.9 (6.0-8.3) g/dL Albumin 4.4 (3.3-5.0) g/dL Urine Color Yellow (Yellow) Urine Appearance Clear (Clear) Urine pH 5.0 (5.0-8.5) Ur Specific [place] 1.020 (1.000-1.030) Urine Protein 1+ A (Negative) Urine Glucose (UA) Negative (Negative) Urine Ketones 1+ A (Negative) Urine Blood Trace-lysed A (Negative) Urine Nitrite Negative (Negative) Urine Bilirubin Negative (Negative) Urine Urobilinogen 0.2 (0.2-1.0) Ur Leukocyte Esterase Negative (Negative) Urine RBC 0-2 (0-2) Urine WBC 0-2 (0-5) Ur Squamous Epith Cells Few (None-Few) Urine Bacteria Few A (None) POC Troponin I 0.01 (0.01-0.04) ng/ml Discharge Plan Discharge Clinical Impression: Vomiting and diarrhea Patient Disposition: Home, Self-Care Condition: Improved Instructions: Acute Nausea and Vomiting (DC) Additional Instructions: Stick with mostly clear liquids today, advance diet as able. Make sure you are drinking enough fluids in general. For significant abdominal pain, uncontrolled vomiting, fainting, fevers, bloody stools or other worsening return any time to the emergency department. Otherwise, see her primary doctor for other concerns. Prescriptions: No Action Prevalite 4 gram powder See Rx Instructions PO DAILY Qty: 720 6RF Rx Instructions: Two scoopfuls orally daily; lisinopril 20 mg tablet 20 mg PO QDAY Qty: 90 3RF multivitamin [Multiple Vitamins] Tablet 1 tab PO QDAY omega 6-dvs-lnf-fish oil [Fish Oil] 300-1,000 mg capsule 1 cap PO QDAY calcium carbonate 600 mg calcium (1,500 mg) tablet 600 mg PO BID ibuprofen 400 mg tablet 400 mg PO TID PRN glucosamine-chondroitin 250-200 mg tablet 1 tab PO BID Saccharomyces boulardii 250 mg capsule PO benefiber PO chlorthalidone 25 mg tablet 12.5 mg PO QDAY Qty: 45 1RF Follow Up/Referrals: Jamia Corrigan MD [Primary Care Provider] - Stand Alone Forms: [facility] Info Instructions
[2024-08-12 14:54] LABS: Troponin, Point-of-Care* 0.01 ng/ml (0.01-0.04)
[2024-08-12 15:03] LABS: Chloride* 105 mmol/L (96-114); Potassium* 4.3 mmol/L (3.6-5.1); Sodium* 135 mmol/L (135-149)
[2024-08-12 15:05] LABS: Albumin* 4.4 g/dL (3.3-5.0)
[2024-08-12 15:06] LABS: Creatinine* 0.8 mg/dL (0.5-1.5); Estimated Glomerular Filt Rate 72 ml/min
[2024-08-12 15:07] LABS: Anion Gap 6 mEq/L (7-15); Bilirubin Direct* 0.3 mg/dL (0.0-0.5); Bilirubin Total* 0.5 mg/dL (0.1-1.5); Blood Urea Nitrogen* 23 mg/dL (7-30); Calcium* 9.7 mg/dL (8.4-10.6); Carbon Dioxide* 24 mmol/L (20-32); Glucose* 148 mg/dL (60-115); Total Protein* 6.9 g/dL (6.0-8.3)
[2024-08-12 15:08] LABS: Alanine Aminotransferase* 25 U/L (4-35); Alkaline Phosphatase* 83 U/L (40-150); Aspartate Amino Transferase* 38 U/L (12-35); Magnesium* 1.8 mg/dL (1.5-2.6)
[2024-08-12 15:10] LABS: C Reactive Protein* < 0.5 mg/dL (0.5-1.0)
[2024-08-12 15:34] LABS: Basophils Absolute Auto 0.03 K/uL (0.00-0.30); Basophils Percent Auto 0.3 % (0.0-3.0); Eosinophils Absolute Auto 0.07 K/uL (0.00-0.50); Eosinophils Percent Auto 0.7 % (0.0-7.0); Hematocrit 36.5 % (33.0-51.0); Hemoglobin* 11.8 gm/dL (12.0-16.0); Immature Granulocytes Abs Auto 0.01 K/uL (0.00-0.30); Immature Granulocytes Pct Auto 0.1 %; Lymphocytes Percent Auto 7.8 % (20-44); Mean Corpuscular HGB Conc 32 gm/dL (32-36); Mean Corpuscular Hemoglobin 30 pg (26-34); Mean Corpuscular Volume 92 fL (80-100); Neutrophils Percent Auto 87.1 % (42.0-72.0); Platelet Count* 230 K/uL (140-440); RDW Coefficient of Variation % 12.1 % (11.5-15.5); Red Blood Count 3.99 m/uL (4.00-5.20); White Blood Count* 9.43 K/uL (4.50-11.00)
[2024-08-12 15:35] LABS: Slide Review Reflex No
[2024-08-12 16:06] LABS: Appearance Urine Clear (Clear); Bilirubin Urine Negative (Negative); Blood Urine Trace-lysed (Negative); Color Urine Yellow (Yellow); Glucose Urine Negative (Negative); Ketones Urine 1+ (Negative); Leukocyte Esterase Urine Negative (Negative); Nitrite Urine Negative (Negative); Protein Urine 1+ (Negative); Urobilinogen Urine 0.2 (0.2-1.0)
[2024-08-12 16:16] LABS: Bacteria Urine Few; RBC Urine 0-2 (0-2); Squamous Epithelial Cell Urine Few (None-Few); WBC Urine 0-2 (0-5)
== END 2024-08-12 17:10 | disposition home or self-care (01) ==
PROVIDERS: Emergency Provider Emergency Medicine; PCP Family Medicine
DX: R11.10 Vomiting, unspecified (principal); R19.7 Diarrhea, unspecified
CPT/HCPCS: 36415; 80048; 80076; 81001; 83605; 83735; 84484; 85025; 86140; 87086; 93005; 94761; 96374; 99284; J2405; J7030

== ENCOUNTER 2024-09-04 10:10 | Outpatient (CLI) | payer MEDICARE, OTHER, SELFPAY ==
--- OUTSIDE RECORDS SUMMARY | 2024-09-08 04:27 | XMS_ITS | Continuity of Care Document ---
Author Organization [facility] Address [address] [address] [place] [address] Phone Care Team Providers Care Public Works Manager Name Role Phone Sussy W[place], Kali Unavailable Unavailable Allergies, Adverse Reactions, Alerts Substance Reaction Status Criticality PENICILLIN G POTASSIUM Active No In formation Medications Medication Instructions Dosage Effective Dates (start - stop) Status Comments Benefiber Clear Sugar Free(dextrin) 3 gram/3.5 gram oral powder packet - Active chlorthalidone 25 mg tablet take 1 tablet by oral route every day 25 MG - Active lisinopril 10 mg tablet take 1 tablet by oral route every day 10 MG - Active Calcium 500 500 mg calcium (1,250 mg) chewable tablet - Active Fish Oil 100 mg-160 mg-1,000 mg capsule - Active PROBIOTIC (unknown strength) Not Available - Active Imodium A-D 2 mg tablet take 2 tablet by oral route after 1st loose stool and 1 tablet (2 mg) after each next bowel movement; do not exceed 16 mg in 24hrs 4 MG - Active CREON (unknown strength) take 2 capsule by oral route 3 times every day with meals and 1 capsule with each snack Not Available - Active Herbal Medications/Suppleme nts unknown Ease Joint Supplement - Active multivitamin Tab Take 1 tablet by mouth daily - Active Vitamin B Complex Cap Take one capsule by mouth daily - Active TYLENOL FLU MAXIMUM STRENGTH (unknown strength) 2 Tabs by mouth once a day Not Available - Active Asacol 400 mg Tab 3tab by mouth twice daily - No Longer Active Procedures Procedure Date Offic/outpt E&m New Mod Sever 2 Offic/outpt E&m Estab Mod-de 2 08 [id number] Sigmoidoscopy Flex; W/bx 1/mx 8 Level Iv-surg Path Gross/micro 08 Offic/outpt E&m Estab Mod-hi 2 08 Ugi Endo; W/remov Fb Subsqt Hosp-da E&m Minr Compl 7 Subsqt Hosp-da E&m Minr Compl 7 Subsqt Hosp-da E&m Minr Compl 7 Subsqt Hosp-da E&m Minr Compl 7 Subsqt Hosp-da E&m Minr Compl 7 Subsqt Hosp-da E&m Minr Compl 7 Subsqt Hosp-da E&m Stable 15 M 07 Subsqt Hosp-da E&m Stable 15 M 07 Ercp; W/endo Retro Insrt Tube/ 07 Subsqt Hosp-da E&m Minr Compl 7 Subsqt Hosp-da E&m Minr Compl 7 Subsqt Hosp-da E&m Minr Compl 7 Subsqt Hosp-da E&m Minr Compl 7 Subsqt Hosp-da E&m Minr Compl 7 Subsqt Hosp-da E&m Minr Compl 7 Subsqt Hosp-da E&m Minr Compl 7 Subsqt Hosp-da E&m Minr Compl 7 Advance Directives Directive Yes / No Effective Date File Name No Information Encounters Encounter Description Practice Location Reason(s) For Visit Diagnoses Date Provider Providers Copied on Encounter Offic/outpt E&m New Mod Sever [facility], [address] [address], [place], [id number], [place] tel:[phone] [facility] GI Symptoms or Concerns (chief complaint) Collagenous colitisBile salt-induced diarrheaUnint entional weight loss 2 Sussy Bass. [address] [facility], [facility] [address], [place], [id number], [place]. tel:[phone] Monika Montana MD. tel:[phone] erring Provider: Frank Deras MD C, [address] [facility] [place], [address]. tel:[phone] [facility], [address] [address], [place], [id number], [place] tel:[phone] [facility] No Information 2 Mathew Flores. [address] [facility], [facility] [address], [place], [id number], [place]. tel:[phone] Offic/outpt E&m Estab Mod-hi 2 [facility], [address] [address], [place], [id number], [place] tel:[phone] [facility] DiarrheaColit is Unspecified/I BD 8 No Information Referring Provider: Monika Camara, [address] [place], [address]. tel:[phone] [facility], [address] [address], [place], [id number], [place] tel:[phone] [facility] No Information 8 Kajal Crespo. [address] [facility], [facility] [address], [place], [id number], [place]. tel:[phone] [facility], [address] [address], [place], [id number], [place] tel:[phone] [facility] Colitis Unspecified/I BDDiarrheaHem orrhoids Nos 8 No Information Offic/outpt E&m Estab Mod-hi 2 [facility], [address] [address], [place], [id number], [place] tel:[phone] [facility] Diarrhea 8 No Information Referring Provider: Referral Self, USE FOR SELF REFERRALS. [facility], [address] [address], [place], [id number], [place] tel:[phone] [facility] No Information 8 Serena Argueta. [address] [facility], [facility] [address], [place], [id number], [place]. tel:[phone] Referring Provider: Brady Hassan, [address] [place] [address], [address]. tel:[phone] Subsqt Hosp-da E&m Minr Compl [facility], [address] [address], [place], [id number], [place] tel:[phone] [facility] No Information 8 Nesset CLERK Larissa. [address] [facility] [address], [place], [id number], [place]. tel:[phone] Referring Provider: No Primary. Subsqt Hosp-da E&m Minr Compl [facility], [address] [address], [place], [id number], [place] tel:[phone] [facility] No Information 8 Nesset CLERK Larissa. [address] [facility] [address], [place], [id number], [place]. tel:[phone] Referring Provider: No Primary. Subsqt Hosp-da E&m Minr Compl [facility], [address] [address], [place], [id number], [place] tel:[phone] [facility] No Information 8 No Information Referring Provider: No Primary. Subsqt Hosp-da E&m Minr Compl [facility], [address] [address], [place], [id number], [place] tel:[phone] [facility] No Information 8 No Information Referring Provider: No Primary. Subsqt Hosp-da E&m Stable 15 M [facility], [address] [address], [place], [id number], [place] tel:[phone] [facility] No Information 8 Kobe Long. [address], [id number], [place]. tel:[phone] Referring Provider: Listed Not. [facility], [address] [address], [place], [address], [place] tel:[phone] [facility] No Information 8 Serena Argueta. [address], [id number], [place]. tel:[phone] Referring Provider: No Primary. Subsqt Hosp-da E&m Minr Compl [facility], [address] [address], [facility] [place], [id number], [place] tel:[phone] [facility] No Information 7 Patrick Dias. [address], [id number], [place]. tel:[phone] Referring Provider: No Primary. Subsqt Hosp-da E&m Minr Compl [facility], [address] [address], [facility] [place], [id number], [place] tel:[phone] [facility] No Information 7 No Information Referring Provider: No Primary. Family History Family Member Type Diagnosis Age At Onset First degree family history Problem (finding) No history of Cancer, colon First degree family history Problem (finding) No Family history of No history of Colon Polyps First degree family history Problem (finding) No history of Crohn's First degree family history Problem (finding) alcoholism First degree family history Problem (finding) Pancreatitis First degree family history Problem (finding) No history of Ulcerative Colitis Immunizations Vaccine Date Status Comments SARS-COV-2 (COVID-19) vaccin e, mRNA, spike protein, LNP, preservative free, 100 mcg/0.5mL dose or 50 mcg/0.25mL dose administered Note: [facility] bi -directional interface ; Source: Other Registry SARS-COV-2 (COVID-19) vaccin e, mRNA, spike protein, LNP, preservative free, 100 mcg/0.5mL dose or 50 mcg/0.25mL dose administered Note: [facility] bi -directional interface ; Source: Other Registry influenza, high-dose seasona l, quadrivalent, .7mL dose, preservative free administered Note: [facility] bi-direct ional interface ; Source: Other Registry SARS-COV-2 (COVID-19) vaccin e, mRNA, spike protein, LNP, preservative free, 100 mcg/0.5mL dose or 50 mcg/0.25mL dose administered Note: [facility] bi -directional interface ; Source: Other Registry SARS-COV-2 (COVID-19) vaccin e, mRNA, spike protein, LNP, preservative free, 100 mcg/0.5mL dose or 50 mcg/0.25mL dose administered Note: [facility] bi -directional interface ; Source: Other Registry influenza, high-dose seasona l, quadrivalent, .7mL dose, preservative free administered Note: [facility] bi-direct ional interface ; Source: Other Registry zoster vaccine recombinant administered N ote: [facility] bi-directional interface ; Source: Other Registry zoster vaccine recombinant administered N ote: [facility] bi-directional interface ; Source: Other Registry Influenza, injectable, Madin Erin Canine Kidney, preservative free, quadrivalent administered Note: [facility] bi- directional interface ; Source: Other Registry Afluria Qd administered Note: [facility] bi-directional interface ; Source: Other Registry Afluria Qd administered Note: [facility] bi-directional interface ; Source: Other Registry Afluria Qd administered Note: [facility] bi-directional interface ; Source: Other Registry Pneumovax 23 administered Note: [facility] bi-d irectional interface ; Source: Other Registry Influenza administered Note: [facility] bi-d irectional interface ; Source: Other Registry Prevnar 13 administered Note: [facility] bi-d irectional interface ; Source: Other Registry influenza virus vaccine, unspecified formulation administered Note: [facility] bi-di rectional interface ; Source: Other Registry influenza virus vaccine, unspecified formulation administered Note: [facility] bi-di rectional interface ; Source: Other Registry Influenza, seasonal, injectable administe red Note: [facility] bi- directional interface ; Source: Other Registry Influenza, seasonal, injectable administe red Note: [facility] bi- directional interface ; Source: Other Registry tetanus toxoid, reduced diphtheria toxoid, and acellular pertussis vaccine, adsorbed administered Note: [facility] b i-directional interface ; Source: Other Registry Influenza, seasonal, injectable administe red Note: [facility] bi- directional interface ; Source: Other Registry Influenza, seasonal, injectable administe red Note: [facility] bi- directional interface ; Source: Other Registry Influenza, seasonal, injectable administe red Note: [facility] bi- directional interface ; Source: Other Registry Influenza, seasonal, injectable administe red Note: [facility] bi- directional interface ; Source: Other Registry Payers Payer name Insurance type Covered alliance party ID Authoriza tion(s) [employer] [id number] Social History Type Description Quantity Date Captured Comments Alcohol Use Details Caffeine Use Details Unknown Tobacco Use Status Current non-smoker Smoking Status Never smoker Non-Smoking Tobacco Use Details : No Details Available : No Details Available Sex Female Vital Signs Date / Time: Height Weight BMI Pulse Rate Blood Pressure Temperature Respiratory Rate Body Surface Area Head Circumference Head Circ. Percentile Wt./Rey. Percentile BMI percentile Pulse Ox Inhaled Ox 9:50 AM 64.00 in 49.169 kg (108.40 lbs) 18.6 1 kg/m eter (2) 67 /min 149/65 mm[Hg] Chief Complaint And Reason For Visit From encounter dated '06/30/2022 10:00'. GI Symptoms or Concerns (chief complaint). Description: The client states the symptoms are acute. 81 year old female who was referred for consultation by Dr. Deras for evaluation of diarrhea. She has medical history of collagenous colitis diagnosed in 2007, treated with mesalamine at that time, and history of cholecystectomy around 2007 and has been on cholestyramine for bile salt diarrhea. Patient reports worsening diarrhea since she came back from [place] (~Dec 2021, visiting her daughter).She was having 5+ watery stools/day, dark, no melena or BRBPR. Dr. Deras has been working on her.Reportedly infectious work up was ruled out (I do not have stool tests). She was started on imodium, fiber supplement, and Creon. Her cholestyramine dose was adjusted. She reported that she did loose~10 pounds during this episode due to her diarrhea and due to poor oral intake at that time. She did not have abdominal pain, fevers, chills or night sweats. She reports with that she is currently back to her baseline having 1-2 formed BM/day. Her appetite has improved and she denies any symptoms at this time. She started gaining back weight. Reason For Referral Reason For Referral No Information History Of Present Illness Encounter Date Complaint History Of Prese nt Illness GI Symptoms or Concerns The [facility] nt states the symptoms are acute. 81 year old female who was referred for consultation by Dr. Deras for evaluation of diarrhea. She has medical history of collagenous colitis diagnosed in 2007, treated with mesalamine at that time, and history of cholecystectomy around 2007 and has been on cholestyramine for bile salt diarrhea. Patient reports worsening diarrhea since she came back from [place] (~Dec 2021, visiting her daughter). She was having 5+ watery stools/day, dark, no melena or BRBPR. Dr. Deras has been working on her. Reportedly infectious work up was ruled out (I do not have stool tests). She was started on imodium, fiber supplement, and Creon. Her cholestyramine dose was adjusted. She reported that she did loose ~10 pounds during this episode due to her diarrhea and due to poor oral intake at that time. She did not have abdominal pain, fevers, chills or night sweats. She reports with that she is currently back to her baseline having 1-2 formed BM/day. Her appetite has improved and she denies any symptoms at this time. She started gaining back weight. Functional Status Date Functional Assessmen t No Information Instructions Date Instruction Additional Infor trinojoselito Counseled about avoi ding NSAID's.Stop Creon as it is less likely that she has pancreatic insufficiency.Increase protein intake. Continue with ensure for now. Continue with Imodium and fiber supplement.Advised to call us if symptoms recur and we will refer for flexible sigmoidoscopy with biopsies to rule out microscopic colitis. Follow up in 3 months. 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 History of Collagenous colitis - 2007-Treated with peptobismol - developed tongue swelling in 2007-Treated with mesalamine at that time.-Related to NSAID's use at the time. No NSAID's at this time.2. Cholecystectomy - . Unintentional weight loss Patient Care Teams Name Effective Dates (start - stop) Status Members No Information
--- OUTSIDE RECORDS SUMMARY | 2024-09-08 04:27 | XMS_ITS | Clinical Summary ---
Author Organization [facility] [facility] Address [place], [place] [address] Care Team Providers Care Yacht Master Name Role Phone Ochoa Killian Primary Care Provider Unavailabl e Allergies Active Allergy Reactions Criticality Noted Date Comments Penicillins Edema 01/04/2008 tongue swelling and blisters Medications Medication Sig Dispensed Refills Start Date End Date Status METOPROLOL 25 MG TAB 1 tab by mouth twice a day 0 Active VITAMIN B COMPLEX TAB 1 tab by mouth daily 0 Active MULTIVITAMIN TAB 1 tab by mouth daily 0 Active GLUCOSAMINE & CHONDROIT-MV & MINS3 375 MG-300 MG-25 MG-0.5 MG TAB 1 tab by mouth daily 0 Active CALCIUM 500 MG TAB 2-3 tabs by mouth daily 0 Active Active Problems Problem Noted Date Diagnosed Date URINARY TRACT INFECTION - enterococcus 7 Edema 11/18/2007 Hyposmolality and/or hyponatremia 11/18/2007 DUODENAL EROSIONS 11/14/2007 Unspecified essential hypertension 11/14/2007 DISORDER OF BILIARY TRACT - cystic duct stump le ak 11/11/2007 Leukocytosis, unspecified 11/11/2007 Other specified disorders of biliary tract 11/11 Immunizations Name Administration Dates Next Due Influenza, IIV3 (Age >=3 years) 09/12/2007 Pneumococcal Poly,23-Valent (Pneumovax) 11/13/20 07 Social History Tobacco Use Types Packs/Day Years Used Date Smoking Tobacco: Former Comments:quit when she was [age] years old Alcohol Use Standard Drinks/Week Comments Yes 0 (1 standard drink = 0.6 oz pur e alcohol) glass of wine at dinner Sex and Gender Information Value Date Recorded Sex Assigned at Not on file Gender Identity Not on file Sexual Orientation Not on file Obstetrics History Last Filed Vital Signs Vital Sign Reading Time Taken Comments Blood Pressure 94/48 01/05/2008 10:40 AM BASEBALL PITCHER Pulse 86 01/05/2008 10:40 AM BASEBALL PITCHER Temperature 35.4 ??C (95.8 ??F) 01/05/2008 8:06 AM CS T Respiratory Rate 16 01/05/2008 10:40 AM BASEBALL PITCHER Oxygen Saturation 96% 01/05/2008 10:40 AM BASEBALL PITCHER Inhaled Oxygen Concentration - - Weight 49.9 kg (110 lb) 01/05/2008 8:06 AM BASEBALL PITCHER Height 162.6 cm (5' 4) 01/05/2008 8:06 AM BASEBALL PITCHER Body Mass Index 18.88 01/05/2008 8:06 AM BASEBALL PITCHER Plan of Treatment Health Maintenance Due Date Last Done Comments Tdap 1951 Depression screening for age 12+ 1950 BMI (ht and wt on same day) for age 18+ 1956 Tetanus booster 1958 Zoster (shingles) series for age 50+ (1 of 2) 08/23/19 88 DEXA/DXA scan for age 65+ 2003 Pneumococcal series for age 65+ (2 of 2 - PCV) 008 11/13/2007 RSV vaccine for adults or pr egnancy (1 - 1-dose 75+ series) 2013 COVID-19 vaccine series ( - 2023-) Influenza for age 65+ 07/30/2024 09/12/2007 Medical Devices Implanted Type Area Counter Tacker Device Identifier Shelf Expiration Date Model / Serial / Lot Stent Biliary 10-9 Cotton Sherineste - [id number] Implanted:Qty: 1 on 11/12/2007 at [facility] # / / [id number] Advance Directives * Full Code (Latest Code Status on File) Date Activated Date Inactivated Comments 01/05/2008 7:58 AM 01/06/2008 2:10 AM * Full Code Date Activated Date Inactivated Comments 11/11/2007 6:14 PM 11/29/2007 3:52 PM Care Teams Yacht Master Relationship Specialty Start Date End Date Ochoa Killian PCP - General 05/25/07
== END 2024-09-04 10:11 | disposition home or self-care (01) ==
LOC: NFLDREF 09-08 04:21
PROVIDERS: PCP Family Medicine; Referring Provider Family Medicine; Visit Provider Family Medicine
DX: I10 Essential (primary) hypertension (principal); E78.5 Hyperlipidemia, unspecified; M85.80 Other specified disorders of bone density and structure, unspecified site; M81.0 Age-related osteoporosis without current pathological fracture; Z86.2 Personal history of diseases of the blood and blood-forming organs and certain disorders involving the immune mechanism
CPT/HCPCS: 80048; 80053; 80061; 82306

== ENCOUNTER 2024-10-31 08:15 | Outpatient (CLI) | payer MEDICARE, OTHER, SELFPAY ==
--- OUTSIDE RECORDS SUMMARY | 2024-11-03 04:25 | XMS_ITS | Clinical Summary ---
Author Organization [facility] Address [place], [place] [address] Care Team Providers Care Lever Operator Name Role Phone Ochoa Killian Primary Care [...] Comments Blood Pressure 94/48 01/05/2008 10:40 AM SEED LABORATORY TECHNICIAN Pulse 86 01/05/2008 10:40 AM SEED LABORATORY TECHNICIAN Temperature 35.4 C (95.8 F) 01/05/2008 8:06 AM SEED LABORATORY TECHNICIAN Respiratory Rate 16 01/05/2008 10:40 AM SEED LABORATORY TECHNICIAN Oxygen Saturation 96% 01/05/2008 10:40 AM SEED LABORATORY TECHNICIAN Inhaled Oxygen Concentration - - Weight 49.9 kg (110 lb) 01/05/2008 8:06 AM SEED LABORATORY TECHNICIAN Height 162.6 cm (5' 4) 01/05/2008 8:06 AM SEED LABORATORY TECHNICIAN Body Mass Index 18.88 01/05/2008 8:06 AM SEED LABORATORY TECHNICIAN Plan of Treatment Health Maintenance Due Date [...] 75+ series) 2013 COVID-19 vaccine series ( season) Influenza for age 65+ 07/30/2024 09/12/2007 Medical Devices Implanted Type Area Metal Building Assembler Device Identifier Shelf Expiration Date Model / Serial / Lot Stent Biliary 10-9 Hew[employer] Sherineste - [id number] Implanted:Qty: 1 on 11/12/2007 at [facility] / / [id number] Advance Directives * Full Code (Latest Code Status on File) Date Activated Date Inactivated Comments 01/05/2008 7:58 AM 01/06/2008 2:10 AM * Full Code Date Activated Date Inactivated Comments 11/11/2007 6:14 PM 11/29/2007 3:52 PM Care Teams Lever Operator Relationship Specialty Start Date End Date Ochoa Killian PCP - General 05/25/07
== END 2024-10-31 08:16 | disposition home or self-care (01) ==
LOC: NFLDREF 11-03 04:22
PROVIDERS: PCP Family Medicine; Referring Provider Family Medicine; Visit Provider Family Medicine
DX: E78.00 Pure hypercholesterolemia, unspecified (principal); I10 Essential (primary) hypertension; M85.80 Other specified disorders of bone density and structure, unspecified site
CPT/HCPCS: 80053; 80061; 82306

== ENCOUNTER 2024-11-28 07:41 | Outpatient (CLI) | payer MEDICARE, OTHER, SELFPAY | END 2024-11-28 07:42 | disposition home or self-care (01) | PROVIDERS: PCP Family Medicine; Visit Provider Family Medicine | DX: E87.5 Hyperkalemia (principal) | CPT/HCPCS: 80048 ==

== ENCOUNTER 2025-04-07 08:34 | Emergency (ER) | payer MEDICARE, OTHER, SELFPAY ==
--- OUTSIDE RECORDS SUMMARY | 2025-04-07 08:36 | XMS_ITS | Clinical Summary ---
Author Organization [facility] Address [address] [place] [address] Care Team Providers Care Home Health Speech Therapist Name Role Phone Ochoa Killian Primary Care Provider Unavailabl e Allergies Active Allergy Reactions Criticality Noted Date Comments Penicillins Edema 01/04/2008 tongue swelling and blisters Medications METOPROLOL 25 MG TAB 1 tab by [...] specified disorders of biliary tract 11/11 Immunizations Immunization Administration Dates Next Due Influenza, IIV3 (Age >=3 years) 09/12/2007 Pneumococcal Poly,23-Valent (Pneumovax) 11/13/20 07 Social History Tobacco Use Types Packs/Day Years Used Date Smoking Tobacco: Former Comments:quit when she was [age] years old Alcohol Use Standard Drinks/Week Comments Yes 0 (1 standard drink = 0.6 oz pur e alcohol) glass of wine at dinner Comments No Sex and Gender Information Value Date Recorded Sex Assigned at Not on file Legal Sex Female 6:49 AM BAKING ASSISTANT Gender Identity Not on file Sexual Orientation Not on file Obstetrics History Last Filed Vital Signs Vital Sign Reading Time Taken Comments Blood Pressure 94/48 01/05/2008 10:40 AM BAKING ASSISTANT Pulse 86 01/05/2008 10:40 AM BAKING ASSISTANT Temperature 35.4 C (95.8 F) 01/05/2008 8:06 AM BAKING ASSISTANT Respiratory Rate 16 01/05/2008 10:40 AM BAKING ASSISTANT Oxygen Saturation 96% 01/05/2008 10:40 AM BAKING ASSISTANT Inhaled Oxygen Concentration - - Weight 49.9 kg (110 lb) 01/05/2008 8:06 AM BAKING ASSISTANT Height 162.6 cm (5' 4) 01/05/2008 8:06 AM BAKING ASSISTANT Body Mass Index 18.88 01/05/2008 8:06 AM BAKING ASSISTANT Plan of Treatment Health Maintenance Due Date Last Done Comments Tdap 1949 Depression screening for age 12+ 1950 BMI (ht and wt on same day) for age 18+ 1956 Tetanus booster 1958 Zoster (shingles) series for age 50+ (1 of 2) 08/23/19 88 DEXA/DXA scan for age 65+ 2003 Pneumococcal series for age 50+ (2 of 2 - PCV) 008 11/13/2007 RSV vaccine for adults or pr egnancy (1 - 1-dose 75+ series) 2013 COVID-19 vaccine series ( - season) Influenza Vaccine (Season Ended) 2025 09/12/20 07 Medical Devices Implanted Type Area Health Informatics Specialist Device Identifier Shelf Expiration Date Model / Serial / Lot Stent Biliary 10-9 Paradox Sherinemarty - [id number] Implanted:Qty: 1 on 11/12/[address] [facility] Common Bile Duct [facility] CHBSO-10-9 # / / [id number] Insurance MEDICARE PART A HB ONLY [employer]IONS MR PB ONLY MEDICARE PART B HB ONLY [employer]IME [employer]UTION HB Advance Directives * Full Code (Latest Code Status on File) Date Activated Date Inactivated Comments 01/05/2008 7:58 AM 01/06/2008 2:10 AM * Full Code Date Activated Date Inactivated Comments 11/11/2007 6:14 PM 11/29/2007 3:52 PM Care Teams Home Health Speech Therapist Relationship Specialty Start Date End Date Ochoa Killian PCP - General 05/25/07
[2025-04-07 08:39] VITALS: BP 110/69; PULSE 84; RESP 18; TEMP 36.9; O2SAT 94; BMI 18.6
--- NOTE | 2025-04-07 08:54 | ED_ITS ---
HPI - General Adult General Chief complaint: Skin/Abscess/Foreign Body Stated complaint: skin rash Time Seen by Provider: 04/07/25 08:53 History of Present Illness HPI narrative: Patient is an 84-year-old woman who has a chronic dermatitis involving the hands primarily the MCPs and the olecranon fossa. She is on topical cortical steroids which have been limited in effectiveness. She does see Dermatology. She comes in today with worsening discomfort in the areas of induration. No signs of systemic infection no fevers no chills no night sweats. The rash is primarily located in the arms but there is some hyperemia and irritation on the torso as well. No other complaints or concerns. Related Data Home Medications ?Medication ?Instructions ?Recorded ?Confirmed Saccharomyces boulardii 250 mg PO 06/10/22 02/20/25 capsule benefiber PO 06/10/22 02/20/25 calcium carbonate 600 mg PO BID 06/10/22 02/20/25 glucosamine-chondroitin 250 mg-200 1 tab PO BID 06/10/22 02/20/25 mg tablet ibuprofen 400 mg tablet 400 mg PO TID PRN 06/10/22 02/20/25 multivitamin (Multiple Vitamins 1 tab PO QDAY 06/10/22 02/20/25 tablet) omega 8-zzz-iql-fish oil 300 1 cap PO QDAY 06/10/22 02/20/25 mg-1,000 mg capsule (Fish Oil) Previous Rx's ?Medication ?Instructions ?Recorded chlorthalidone 25 mg tablet 12.5 mg (1/2 x 25 mg) PO QDAY #45 11/28/24 tabs cholestyramine-aspartame 4 gram See Rx Instructions PO DAILY #720 11/28/24 oral powder (Prevalite) grams lisinopril 30 mg tablet 30 mg PO QDAY #90 tabs 11/28/24 Allergies Allergy/AdvReac Type Severity Reaction Status Date / Time Penicillins Allergy Unknown Verified 04/07/25 08:44 Review of Systems Status of ROS: Reports: 10 or more systems reviewed and unremarkable except as noted in History and below [facility] Medical History Osteopenia (2020) ?M85.80 - Other specified disorders of bone density and structure, unspecified site (ICD-10) Hyperlipidemia ?E78.5 - Hyperlipidemia, unspecified (ICD-10) Hypertension (2014) ?I10 - Essential (primary) hypertension (ICD-10) Fibrocystic breast changes ?N60.19 - Diffuse cystic mastopathy of unspecified breast (ICD-10) Health care directive on file ?Z78.9 - Other specified health status (ICD-10) Surgical History Status post cholecystectomy (~2012) ?Z90.49 - Acquired absence of other specified parts of digestive tract (ICD- 10) Status post cataract extraction (2019) ?Z98.49 - Cataract extraction status, unspecified eye (ICD-10) Status post breast biopsy ?Z98.890 - Other specified postprocedural states (ICD-10) S/P total knee arthroplasty (2012) ?Z96.659 - Presence of unspecified artificial knee joint (ICD-10) Family History Father Myocardial infarction, Onset Age: 75 Daughter Type 1 diabetes mellitus Social History Narrative: 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, 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[place], 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 Exercises daily 15 minutes [place] [address] and stretches Nonsmoker quit age 18 Drinks 3-4 glasses of wine a week What is your current living situation?: I presently have a place to live Problems where you live: no known problems In the past 12 months, utilities in danger of being shut off: no In past 12 months, lack of transportation kept you from medical appts, meetings, work, or getting things needed for daily living: no In the past 12 mos, have been you worried that your food would run out before you had money to buy more?: never true In the past 12 mos, the food you bought just didn't last and you didn't have money to buy more?: never true Smoking Status: Former smoker What tobacco products do you use: cigarettes Smoking quit date/years: >15 years ago Do you use any of these nicotine containing products: None Second hand tobacco smoke exposure: Yes How often do you have a drink containing alcohol: 4 or more times a week How many standard drinks containing alcohol do you have on a typical day: 1 or 2 How often do you have six or more drinks on one occasion: Never AUDIT-C Alcohol total score: 4 Non-prescribed substance use: denies use How often does anyone, including family, friends and others, physically hurt you : never How often does anyone, including family, friends and others, insult or talk down to you: never How often does anyone, including family, friends and others, threaten you with harm: never How often does anyone, including family, friends and others, scream or curse at you: never Exam Narrative: Exam Narrative: EXAM GENERAL: Patient appears comfortable and well. EYES: No scleral icterus. LYMPH: No supraclavicular or cervical lymphadenopathy. SKIN: Patient has obvious did desquamation chronically of the skin of the ole cranon fossa as well as the hands primarily the posterior MCPs. Hyperemia noted across the chest. EXT: No dependent lower extremity pedal edema. HEART: Regular rate and rhythm with no murmurs, rubs, or gallops. LUNGS: Clear to auscultation bilaterally with no crackles or wheezes. ABD: Soft, non tender, non distended. PSYCH: Good eye contact, speech is not pressured. Const: Vital Signs, click to edit/add: Vital Signs - 24 hr 04/07/25 08:39 Temperature 98.5 F Pulse Rate [Right Pulse Oximeter] 84 Respiratory Rate 18 Blood Pressure [Le ft Upper Arm] 110/69 Pulse Oximetry 94 Course Course ED Course: Patient seen and examined. Vital Signs Vital signs: Initial Vital Signs Temperature 98.5 F 04/07/25 08:39 Temperature Source Temporal Artery Scan 04/07/25 08:39 Pulse Rate 84 04/07/25 08:39 Respiratory Rate 18 04/07/25 08:39 Blood Pressure 110/69 04/07/25 08:39 Blood Pressure Mean 82 04/07/25 08:39 Blood Pressure Position Sitting 04/07/25 08:39 Pulse Oximetry 94 04/07/25 08:39 Vital Signs Temperature 98.5 F 04/07/25 08:39 Pulse Rate 84 04/07/25 08:39 Respiratory Rate 18 04/07/25 08:39 Blood Pressure 110/69 04/07/25 08:39 Pulse Oximetry 94 04/07/25 08:39 Temperature 98.5 F 04/07/25 08:39 Pulse Rate 84 04/07/25 08:39 Respiratory Rate 18 04/07/25 08:39 Blood Pressure 110/69 04/07/25 08:39 Pulse Oximetry 94 04/07/25 08:39 Medical Decision Making MDM Narrative Medical decision making narrative: Patient is a chronic dermatitis which is not adequately treated at this point. His topical agents but I do not believe that is enough for her. I do think we can help her in the short term by a place her on a short course of prednisone and I did make those arrangements. Patient seems frustrated with me the not able to solve this issue today but I did provide reassurance that the prednisone will help her. I have recommended close follow-up with her primary physician and she does see her rectifier operator again in 9 days. See no signs of secondary infection or C been Coy syndrome or erythema multiforme. She will continue topical emolients aswell. Discharge Plan Discharge Clinical Impression: Dermatitis Patient Disposition: Home, Self-Care Condition: Stable Instructions: Dermatitis (ED) Additional Instructions: Prednisone as directed Continue topical agents. Follow-up with your doctor this week. Keep appointment with Dermatology. Activity Level: No Restrictions Discharge Diet: Regular Prescriptions: No Action multivitamin [Multiple Vitamins] Tablet 1 tab PO QDAY omega 6-umk-eft-fish oil [Fish Oil] 300-1,000 mg capsule 1 cap PO QDAY calcium carbonate 600 mg calcium (1,500 mg) tablet 600 mg PO BID ibuprofen 400 mg tablet 400 mg PO TID PRN glucosamine-chondroitin 250-200 mg tablet 1 tab PO BID Saccharomyces boulardii 250 mg capsule PO benefiber PO lisinopril 30 mg tablet 30 mg PO QDAY Qty: 90 3RF chlorthalidone 25 mg tablet 12.5 mg PO QDAY Qty: 45 3RF Prevalite 4 gram powder See Rx Instructions PO DAILY Qty: 720 12RF Rx Instructions: Two scoopfuls orally daily; Follow Up/Referrals: Jamia Corrigan MD [Primary Care Provider] - Stand Alone [facility]
--- OUTSIDE RECORDS SUMMARY | 2025-04-07 09:18 | XMS_ITS | Clinical Summary ---
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 Gender Identity Not on file Sexual Orientation Not on file Obstetrics History Last Filed Vital Signs Vital Sign Reading Time Taken Comments Blood Pressure 94/48 01/05/2008 10:40 AM ACCOUNTING CLERKS SUPERVISOR Pulse 86 01/05/2008 10:40 AM ACCOUNTING CLERKS SUPERVISOR Temperature 35.4 C (95.8 F) 01/05/2008 8:06 AM ACCOUNTING CLERKS SUPERVISOR Respiratory Rate 16 01/05/2008 10:40 AM ACCOUNTING CLERKS SUPERVISOR Oxygen Saturation 96% 01/05/2008 10:40 AM ACCOUNTING CLERKS SUPERVISOR Inhaled Oxygen Concentration - - Weight 49.9 kg (110 lb) 01/05/2008 8:06 AM ACCOUNTING CLERKS SUPERVISOR Height 162.6 cm (5' 4) 01/05/2008 8:06 AM ACCOUNTING CLERKS SUPERVISOR Body Mass Index 18.88 01/05/2008 8:06 AM ACCOUNTING CLERKS SUPERVISOR Plan of Treatment Health Maintenance Due Date [...] 09/12/20 07 Medical Devices Implanted Type Area Custom Motorcycle Painter Device Identifier Shelf Expiration Date Model / Serial / Lot Stent Biliary 10-9 [place] [employer] - [id number] Implanted:Qty: 1 on 11/12/2007 at [facility] Common Bile Duct [facility] CHBSO-10-9 # / / [id number] Insurance MEDICARE PART A HB ONLY [employer]ICA [employer] MR PB ONLY MEDICARE PART B HB ONLY MEDICA PRIME SOLUTION HB Advance Directives * Full Code (Latest Code Status on File) Date Activated Date Inactivated Comments 01/05/2008 7:58 AM 01/06/2008 2:10 AM * Full Code Date Activated Date Inactivated Comments 11/11/2007 6:14 PM 11/29/2007 3:52 PM Care Teams Estimator And Drafter Supervisor Relationship Specialty Start Date End Date Ochoa Killian PCP - General 05/25/07
== END 2025-04-07 09:10 | disposition home or self-care (01) ==
PROVIDERS: Emergency Provider Internal Medicine; PCP Family Medicine
DX: L30.9 Dermatitis, unspecified (principal)
CPT/HCPCS: 99283

== ENCOUNTER 2025-05-28 09:10 | Outpatient (CLI) | payer MEDICARE, OTHER, SELFPAY ==
--- NOTE | 2025-05-28 09:15 | CRLHL7_ITS ---
For Patients: As a result of the Century Cures Act, medical imaging exams and procedure reports are released immediately into your electronic medical record. You may view this report before your referring provider. If you have questions, please contact your health care provider. INDICATION: BILATERAL SCREENING MAMMOGRAM, ASYMPTOMATIC 84 Y/O FEMALE COMPARISON: 02/01/2024, 02/05/2020, 10/18/2017 TECHNIQUE: Digital mammogram in CC and MLO projections including computer-aided detection (CAD) and tomosynthesis. BREAST COMPOSITION: The breasts are heterogeneously dense, which may obscure small masses. FINDINGS: No suspicious findings. ASSESSMENT: BI-RADS 1 Negative RECOMMENDATION: Annual screening mammogram. A lay language report of this examination will be provided to the patient. Dictated by: Ochoa Pyle MD @ 05/28/2025 11:13:06 (Electronically Signed)
--- OUTSIDE RECORDS SUMMARY | 2025-05-29 02:07 | XMS_ITS | Clinical Summary ---
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 Gender Identity Not on file Sexual Orientation Not on file Obstetrics History Last Filed Vital Signs Vital Sign Reading Time Taken Comments Blood Pressure 94/48 01/05/2008 10:40 AM FIELD IRRIGATION WORKER Pulse 86 01/05/2008 10:40 AM FIELD IRRIGATION WORKER Temperature 35.4 C (95.8 F) 01/05/2008 8:06 AM FIELD IRRIGATION WORKER Respiratory Rate 16 01/05/2008 10:40 AM FIELD IRRIGATION WORKER Oxygen Saturation 96% 01/05/2008 10:40 AM FIELD IRRIGATION WORKER Inhaled Oxygen Concentration - - Weight 49.9 kg (110 lb) 01/05/2008 8:06 AM FIELD IRRIGATION WORKER Height 162.6 cm (5' 4) 01/05/2008 8:06 AM FIELD IRRIGATION WORKER Body Mass Index 18.88 01/05/2008 8:06 AM FIELD IRRIGATION WORKER Plan of Treatment Health Maintenance Due Date Last Done Comments Tdap 1949 Depression screening for age 12+ 1950 BMI (ht and wt on same day) for age 18+ 1956 Tetanus booster 1958 Zoster (shingles) series for age 50+ (1 of 2) 1988 DEXA/DXA scan for age 65+ 2003 Pneumococcal series for age 50+ (2 of 2 - PCV) 11/13/2008 11/13/2007 RSV vaccine for adults or (1 - 1-dose 75+ series) 2013 COVID-19 vaccine series ( - season) 2024 Influenza Vaccine (Season Ended) 2025 09/12/20 07 Hepatitis B series for 19+ Aged Out N o longer eligible based on patient's age to complete this topic Medical Devices Implanted Type Area Shipping And Receiving Associate Device Identifier Shelf Expiration Date Model / Serial / Lot Stent Biliary 10-9 [place] - [id number] Implanted:Qty: 1 on 11/12/2007 at [facility] / [id number] Insurance MEDICARE PART A HB ONLY MEDICA PRIME SOLUTIONS MR PB ONLY MEDICARE PART B HB ONLY MEDICA PRIME SOLUTION HB Advance Directives * Full Code (Latest Code Status on File) Date Activated Date Inactivated Comments 01/05/2008 7:58 AM 01/06/2008 2:10 AM * Full Code Date Activated Date Inactivated Comments 11/11/2007 6:14 PM 11/29/2007 3:52 PM Care Teams Vinyl Cutter Relationship Specialty Start Date End Date Ochoa Killian PCP - General 05/25/07
== END 2025-05-28 09:11 | disposition home or self-care (01) ==
LOC: MAMMO 09:11
PROVIDERS: PCP Family Medicine; Visit Provider Family Medicine
DX: Z12.31 Encounter for screening mammogram for malignant neoplasm of breast (principal); R92.333 Mammographic heterogeneous density, bilateral breasts
CPT/HCPCS: 77063; 77067